=== PATIENT | male | born 1965 | race Caucasian/White ===

== ENCOUNTER 2017-09-27 11:35 | Emergency (ER) | payer OTHER ==
--- NOTE | 2017-09-27 12:10 | RAD ---
INDICATION: Chest pain COMPARISON: None TECHNIQUE: An AP portable view obtained at 1202 hours is submitted. FINDINGS: Bones/Soft Tissues: There are no acute bony findings. Cardiomediastinal: The cardiomediastinal silhouette is normal. Lungs: There are no infiltrates. Pleura: There are no pleural effusions. Other: None IMPRESSION: NO ACTIVE DISEASE
[2017-09-27 12:38] LABS: ABS Basophils 0 10^3/ul (0-0.2); ABS Eosinophils 0 10^3/ul (0-0.6); ABS Lymphocytes 1.4 10^3/ul (1.0-4.8); ABS Monocytes 0.5 10^3/ul (0-0.8); ABS Neutrophils 3.2 10^3/ul (1.5-7.7); ABS Nucleated RBC 0 10^3/ul; Eosinophil % 0.7 % (0-6); Hematocrit 45 % (42-52); Hemoglobin 15.5 g/dl (14.0-18.0); Lymphocyte % 27.3 % (25-47); Mean Corpuscular HGB Conc 34 g/dl (31-36); Mean Corpuscular Hemoglobin 31 pg (27-31); Mean Corpuscular Volume 92 fL (80-94); Mean Platelet Volume 7 um3 (7.4-10.4); Nucleated Red Blood Cells % 0.1; Platelet Count 167 10^3/ul (150-450); Red Blood Count 4.94 10^6/ul (4.0-5.4); Red Cell Distribution Width 14 % (10.5-15); White Blood Count 5.2 10^3/ul (3.5-10.8)
[2017-09-27 12:52] LABS: EGFR Non-African American 83.6 (>60)
[2017-09-27 16:46] VITALS: BP 141/91
--- NOTE | 2017-09-27 21:19 | CONS ---
CC: Dr. Evans; Dr. Luis Farias* CONSULTATION REPORT: DATE OF CONSULT: 09/25/17 PRIMARY CARE PROVIDER: Dr. Evans. MY ATTENDING WHILE IN THE HOSPITAL: Dr. Luis Farias. CHIEF COMPLAINT: Chest pain. HISTORY OF PRESENT ILLNESS: Mr. French is a 52-year-old male with past medical history significant for hypertension, GERD and hiatal hernia who presents to the emergency department after 2 episodes of chest pain radiating to his neck in the past 3 weeks. The patient states the first episode he was in the grocery store. He has not had any recent changes in his diet or anything out of the ordinary and he developed sudden onset burning pain underneath his epigastric region, which radiated up to his neck. The patient states that he went back to his car, burped several times, and it resolved. The patient had no other symptoms such as nausea, vomiting, diaphoresis or shortness of breath. The patient states it did not radiate anywhere besides his neck. 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 States that with no provocation, he had a similar more intense chest pain rated as a 7/10, burning underneath his epigastric region, radiating up into his neck. The patient states that it started about 1030. The patient was at work. 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 The patient denies no burping with relief. The patient denies any recent illnesses. The patient denied any associated symptoms such as nausea, vomiting, sweating or shortness of breath with this episode. The patient states that he did have a similar episode many years ago where he was sent to the hospital, had an endoscopy and it was revealed that he had a hiatal hernia with esophagitis and was started on omeprazole therapy at that time. The patient has no other episodes similar to this. The patient takes lisinopril, omeprazole, and an unknown anti- inflammatory medication for his shoulder. The patient stated that he is not inclined to stay overnight in the hospital. The patient denies any other recent illnesses, exposure to flu. The patient states he had a stomach virus in early July, it lasted 3 days. The patient states he has some chronic loose stools without diarrhea or blood, but has been going on since he started his omeprazole. The patient states he has occasional wheezing when exposed to cold air and takes ibuprofen occasionally for aches and pain. PAST MEDICAL HISTORY: Hypertension, GERD, hiatal hernia. PAST SURGICAL HISTORY: EGD. MEDICATIONS: 1. Omeprazole 20 mg p.o. daily. 2. Lisinopril 10 mg p.o. daily. 3. Nabumetone 500 mg p.o. b.i.d. as needed. ALLERGIES: No known drug allergies. FAMILY HISTORY: The patient's father is and had prostate cancer and no other known past medical conditions. The patient's mother is alive and well and has no known past medical history. The patient has a sister with no past medical history except for "woman issues." SOCIAL HISTORY: The patient has never smoked. The patient drinks 3 to 4 beers a night and has done so for approximately 3 or 4 years. The patient denies any illicit drug use. The patient works in maintenance at [employer]. The patient is not , has 1 biological son and 1 adopted son, both of whom are healthy. REVIEW OF SYSTEMS: A 14-point review of systems was reviewed and is negative except as above. PHYSICAL EXAM: General: The patient is a 52-year-old male, who appears stated age and is sitting comfortably in the bed, in no acute distress. Vital Signs: En route to the emergency department, temperature 98.2, pulse rate 70, respiratory rate 16, oxygen saturation 97% on room air, blood pressure 133/94. HEENT: Head normocephalic, atraumatic. Sclerae anicteric. No conjunctival injection. Nasal mucosa moist. Oral mucosa moist. No pharyngeal erythema, erosions, postnasal drip, discharge or exudate. Neck: Supple, nontender, no lymphadenopathy. No carotid bruits auscultated. Cardiac: Regular rate and rhythm. No clicks, murmurs, gallops, or rubs. Pulses 2+ in bilateral dorsalis pedis, posterior tibialis and radial areas. Respiratory: Clear to auscultation bilaterally. No wheezes, rales, or rhonchi. Good air exchange bilaterally. Abdomen: Soft, nontender, nondistended. Bowel sounds present and normoactive in all 4 quadrants. No hepatosplenomegaly. No abdominal bruits auscultated. Genitourinary: No suprapubic or CVA tenderness. Skin: Clean, dry , and intact. No rash. Neuro: Cranial nerves II through XII intact. Alert and oriented x3. No focal deficits. Psychiatric: Pleasant and cooperative. DIAGNOSTIC STUDIES/LAB DATA: White blood cell count 5.2, hemoglobin 13.5, hematocrit 45, platelet count 167. Sodium 136, potassium 4.1, chloride 103, carbon dioxide 27, anion gap 6, BUN 14, creatinine 0.94, glucose 104, lactic acid 1.0, calcium 9.2, bilirubin 0.5, AST 17, ALT 29, alk phos 45, troponin I 0.00. Total protein 6.4, albumin 4.1, globulin 2.3, albumin/globulin ratio 1.8. Studies: Electrocardiogram shows normal sinus rhythm, left axis deviation, no ST segment changes, no blocks, hypertrophy, or enlargement, QTc of 418, rate 65 , no other abnormalities. Chest x-ray read as no active disease. ASSESSMENT AND PLAN: The patient is a 52-year-old male with a past medical history significant for hypertension, gastroesophageal reflux disease, and hiatal hernia who presents with 2 episodes of chest pain 3 weeks apart, one of which resolved with burping, the other one which resolved with nitroglycerin and aspirin. The patient is currently chest pain free, though had small episodes of similar chest pain, which resolved with burping. The patient refused admission to the hospital. The patient has a KRISTINE risk score of 0 indicating a 5% risk of , NV, or ischemia requiring urgent vascularization. 1. Chest pain. The patient has a KRISTINE risk score of 0 as above. The patient' s chest pain sounds to be gastrointestinal in nature due to previous episode of similar chest pain which was ruled out for cardiac causes and it turned to most likely be due to esophagitis. However, it was encouraged that the patient stay for repeat troponins and a stress test in the morning. The patient declined this stating that he understands the risk of leaving with risk being , heart attack, and having to return to the hospital. The patient is discharged to follow up with his primary care provider for risk stratification with lipid panel, hemoglobin A1c, and for further cardiac testing. Outpatient stress test is strongly recommended. The patient should return to the hospital for any chest pain, shortness of breath, or other alarming symptoms. 2. Hypertension. The patient is normotensive in the hospital and should be continued on lisinopril. 3. Gastroesophageal reflux disease with hiatal hernia. The patient should follow up with primary care provider for this. The patient was encouraged to purchase [id number] Tums and if he had recurrent chest pain of this nature to take Tums to assess whether there was any improvement in his symptoms with this. The patient should also return to the hospital if similar chest pain occurs. 4. Diet. The patient should have a heart healthy diet and avoid excessive caffeine. The patient should decrease his alcohol use. TIME SPENT: Approximately 60 minutes were spent on this consultation, 30 of which were spent [id number] with the patient obtaining history and physical and discussing treatment plan as well as risk and benefits for refusing admission to the hospital. This plan has been discussed with my attending, Dr. Luis Farias, he is in agreement. ELENA CLARK [id number]/[facility] #: [id number] [place]
--- NOTE | 2017-09-28 08:02 | ED ---
Daya Woodard Julia, scribed for Uli Wen MD on 09/27/17 at 1231 . 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 Patient denies dizziness, diaphoresis, SOB, LE edema, nausea, and vomiting. Patient was given four baby ASA before EMS arrival. Patient was given Nitroglycerin by EMS. Pain is currently resolved. Patient reports a similar but less severe pain 3 weeks ago while grocery shopping that resolved after a few minutes while sitting and belching. - History of Current Complaint Chief Complaint: EDChestPainROMI Time Seen by Provider: 09/27/17 12:00 Hx Obtained From: Patient Onset/Duration: Started Hours Ago, Resolved Time of Onset: 10:30 Pain Intensity: 0 Pain Scale Used: 0-10 Numeric Chest Pain Location: Mid Sternal Chest Pain Radiates: Yes Chest Pain Radiates To:: Jaw Character: Dull/Aching Alleviating Factor(s): EMS Tx - Nitro and four baby ASA Associated Signs and Symptoms: Positive: Chest Pain, Other: - jaw pain. Negative: Dizziness, Shortness of Breath, Diaphoresis, Nausea, Vomiting - Allergy/Home Medications Allergies/Adverse Reactions: Allergies Allergy/AdvReac Type Severity Reaction Status Date / Time No Known Allergies Allergy Verified 05/22/12 13:29 Home Medications: Home Medications Lisinopril/HCTZ 20/12.5(NF) [Zestoretic 20/12.5(NF)] 1 tab PO DAILY 09/27/17 [ History Confirmed 09/27/17] Nabumetone [Nabumetone] 500 mg PO BID 09/27/17 [History Confirmed 09/27/17] Omeprazole CAP* [Prilosec CAP* 20 MG] 20 mg PO DAILY 09/27/17 [History Confirmed 09/27/17] PMH/Surg Hx/FS Hx/Imm Hx Cardiovascular History: Reports: Hx Hypertension GI History: Reports: Hx Gastroesophageal Reflux Disease - Surgical History Surgery Procedure, Year, and Place: tonsillectomy, addenoidectomy; benign tumor left chest removed Infectious Disease History: No Infectious Disease History: Denies: Traveled Outside the [place] in Last 30 Days - Family History Known Family History: Positive: Other - prostate CA - father Negative: Cardiac Disease - Social History Occupation: Employed Full-time Substance Use Type: Reports: None Smoking Status (MU): Never Smoked Tobacco Review of Systems Negative: Skin Diaphoresis Positive: Dental Pain - jaw pain Positive: Chest Pain Negative: Shortness Of Breath Negative: Vomiting, Nausea Negative: Edema Neurological: Negative - dizziness All Other Systems Reviewed And Are Negative: Yes Physical Exam - Summary Physical Exam Summary: Appearance: The patient is well-nourished in no acute distress and in no acute pain. Skin: The skin is warm and dry and skin color reflects adequate perfusion. HEENT: The head is normocephalic and atraumatic. The pupils are equal and reactive. The conjunctivae are clear and without drainage. Nares are patent and without drainage. Mouth reveals moist mucous membranes and the throat is without erythema and exudate. The external ears are intact. The ear canals are patent and without drainage. The tympanic membranes are intact. Neck: the neck is supple with full range of motion and non-tender. There are no carotid bruits. There is no neck vein distension. Respiratory: Chest is non-tender. Lungs are clear to auscultation and breath sounds are symmetrical and equal. Cardiovascular: Heart is regular rate and rhythm. There is no murmur or rub auscultated. There is no peripheral edema and pulses are symmetrical and equal. Abdomen: The abdomen is soft and non-tender. There are normal bowel sounds heard in all four quadrants and there is no organomegaly palpated. Musculoskeletal: There is no back tenderness noted. Extremities are non-tender with full range of motion. There is good capillary refill. There is no peripheral edema or calf tenderness elicited. Neurological: Patient is alert and oriented to person, place and time. The patient has symmetrical motor strength in all four extremities. Cranial nerves are grossly intact. Deep tendon reflexes are symmetrical and equal in all four extremities. Psychiatric: The patient has an appropriate affect and does not exhibit any anxiety or depression. Triage Information Reviewed: Yes Vital Signs On Initial Exam: Initial Vitals Temp Pulse Resp BP Pulse Ox 98.2 F 68 16 133/94 97 09/27/17 11:51 09/27/17 11:51 09/27/17 11:51 09/27/17 11:51 09/27/17 11:51 Vital Signs Reviewed: Yes Diagnostics - Vital Signs Vital Signs Temp Pulse Resp BP Pulse Ox 09/27/17 11:51 98.2 F 68 16 133/94 97 - Laboratory Lab Results: Lab Results 09/27/17 09/27/17 09/27/17 Range/Units 12:25 12:25 12:25 WBC 5.2 (3.5-10.8) 10^3/ul RBC 4.94 (4.0-5.4) 10^6/ul Hgb 15.5 (14.0-18.0) g/dl Hct 45 (42-52) % MCV 92 (80-94) fL MCH 31 (27-31) pg MCHC 34 (31-36) g/dl RDW 14 (10.5-15) % Plt Count 167 (150-450) 10^3/ul MPV 7 L (7.4-10.4) um3 Neut % (Auto) 61.4 (38-83) % Lymph % (Auto) 27.3 (25-47) % [place] % (Auto) 10.0 H (0-7) % Eos % (Auto) 0.7 (0-6) % Baso % (Auto) 0.6 (0-2) % Absolute Neuts (auto) 3.2 (1.5-7.7) 10^3/ul Absolute Lymphs (auto) 1.4 (1.0-4.8) 10^3/ul Absolute Monos (auto) 0.5 (0-0.8) 10^3/ul Absolute Eos (auto) 0 (0-0.6) 10^3/ul Absolute Basos (auto) 0 (0-0.2) 10^3/ul Absolute Nucleated RBC 0 10^3/ul Nucleated RBC % 0.1 Sodium 136 (133-145) mmol/L Potassium 4.1 (3.5-5.0) mmol/L Chloride 103 (101-111) mmol/L Carbon Dioxide 27 (22-32) mmol/L Anion Gap 6 (2-11) mmol/L BUN 14 (6-24) mg/dL Creatinine 0.94 (0.67-1.17) mg/dL Est GFR ( Amer) 107.6 (>60) Est GFR (Non-Af Amer) 83.6 (>60) BUN/Creatinine Ratio 14.9 (8-20) Glucose 104 H (70-100) mg/dL Lactic Acid 1.0 (0.5-2.0) mmol/L Calcium 9.2 (8.6-10.3) mg/dL Total Bilirubin 0.50 (0.2-1.0) mg/dL AST 17 (13-39) U/L ALT 29 (7-52) U/L Alkaline Phosphatase 45 (34-104) U/L Troponin I 0.00 (<0.04) ng/mL Total Protein 6.4 (6.4-8.9) g/dL Albumin 4.1 (3.2-5.2) g/dL Globulin 2.3 (2-4) g/dL Albumin/Globulin Ratio 1.8 (1-3) /09/15 Range/Units 15:12 WBC (3.5-10.8) 10^3/ul RBC (4.0-5.4) 10^6/ul Hgb (14.0-18.0) g/dl Hct (42-52) % MCV (80-94) fL MCH (27-31) pg MCHC (31-36) g/dl RDW (10.5-15) % Plt Count (150-450) 10^3/ul MPV (7.4-10.4) um3 Neut % (Auto) (38-83) % Lymph % (Auto) (25-47) % [place] % (Auto) (0-7) % Eos % (Auto) (0-6) % Baso % (Auto) (0-2) % Absolute Neuts (auto) (1.5-7.7) 10^3/ul Absolute Lymphs (auto) (1.0-4.8) 10^3/ul Absolute Monos (auto) (0-0.8) 10^3/ul Absolute Eos (auto) (0-0.6) 10^3/ul Absolute Basos (auto) (0-0.2) 10^3/ul Absolute Nucleated RBC 10^3/ul Nucleated RBC % Sodium (133-145) mmol/L Potassium (3.5-5.0) mmol/L Chloride (101-111) mmol/L Carbon Dioxide (22-32) mmol/L Anion Gap (2-11) mmol/L BUN (6-24) mg/dL Creatinine (0.67-1.17) mg/dL Est GFR ( Amer) (>60) Est GFR (Non-Af Amer) (>60) BUN/Creatinine Ratio (8-20) Glucose (70-100) mg/dL Lactic Acid (0.5-2.0) mmol/L Calcium (8.6-10.3) mg/dL Total Bilirubin (0.2-1.0) mg/dL AST (13-39) U/L ALT (7-52) U/L Alkaline Phosphatase (34-104) U/L Troponin I 0.00 (<0.04) ng/mL Total Protein (6.4-8.9) g/dL Albumin (3.2-5.2) g/dL Globulin (2-4) g/dL Albumin/Globulin Ratio (1-3) Result Diagrams: 09/27/17 12:25 09/27/17 12:25 Lab Statement: Any lab studies that have been ordered have been reviewed, and results considered in the medical decision making process. - Radiology CXR Radiology Interpretation Completed By: Radiologist - NO ACTIVE DISEASE. ED Physician has reviewed this report. - EKG 1207 Cardiac Rate: NL - at 60 BPM EKG Rhythm: Sinus Rhythm EKG Interpretation: short OH interval, diffuse nonspecific ST depression Chest Pain Course/Dx - Course Course Of Treatment: Mr. French presented with a worrisome story for unstable angina with multiple risk factors. His initial ECG and labs were negative and I asked the hospitalists to evaluate him for admission. He was adamant about not staying in the hospital although he understood the risks. He was willing to stay for a repeat troponin and that was 0 so he was D/C'd instable condition. I recommended close F/U. - Diagnoses Provider Diagnoses: Chest pain - Provider Notifications Discussed Care Of Patient With: Sudeep Farias MD - hospitalist Time Discussed With Above Provider: 13:40 Instructed by Provider To: MD Will See In ED Discharge - Discharge Plan Condition: Stable Disposition: HOME Patient Education Materials: Chest Pain (ED) Referrals: Erick Evans MD [Primary Care Provider] - 3 Days (Follow up with your doctor on 09/30/17.) The documentation as recorded by the Daya sheppard Julia accurately reflects the service I personally performed and the decisions made by me, Uli Wen MD.
== END 2017-09-27 16:46 | disposition home or self-care (01) ==
LOC: ED 11:35
DX: R07.9 Chest pain, unspecified (principal); I10 Essential (primary) hypertension; K21.9 Gastro-esophageal reflux disease without esophagitis; K44.9 Diaphragmatic hernia without obstruction or gangrene
CPT/HCPCS: 36415; 71045; 80053; 83605; 84484; 85025; 93005

== ENCOUNTER 2018-07-31 11:00 | Emergency (ER) | payer OTHER ==
[2018-07-31 11:06] VITALS: BP 133/81
--- NOTE | 2018-07-31 11:14 | UC ---
Lower Extremity/Ankle HPI - HPI Summary HPI Summary: 53 yo male presents with RIGHT foot pain for the last 2-3 days. 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 He has not taken anything OTC for his symptoms. Does feel better after a few days of rest off of work. Denies injury, numbness, or tingling. - History of Current Complaint Chief Complaint: UCLowerExtremity Stated Complaint: R FOOT COMPLAINT Time Seen by Provider: 07/31/18 11:12 Hx Obtained From: Patient Onset/Duration: Gradual Onset Severity Initially: Moderate Severity Currently: Moderate Pain Intensity: 8 Pain Scale Used: 0-10 Numeric Aggravating Factor(s): Standing, Ambulation Alleviating Factor(s): Rest Able to Bear Weight: Yes - Allergies/Home Medications Allergies/Adverse Reactions: Allergies Allergy/AdvReac Type Severity Reaction Status Date / Time No Known Allergies Allergy Verified 07/31/18 11:07 PMH/Surg Hx/FS Hx/Imm Hx Cardiovascular History: Hypertension GI/ History: Gastroesophageal Reflux - Surgical History Surgical History: Yes Surgery Procedure, Year, and Place: tonsillectomy, addenoidectomy; benign tumor left chest removed - Family History Known Family History: Positive: Other - prostate CA - father Negative: Cardiac Disease - Social History Occupation: Employed Full-time Lives: With Family Alcohol Use: Daily Alcohol Amount: Daily drinker 5-6 beers a day Substance Use Type: None Smoking Status (MU): Never Smoked Tobacco - Immunization History Most Recent Tetanus Shot: "long time ago" Review of Systems All Other Systems Reviewed And Are Negative: Yes Constitutional: Positive: Negative Skin: Positive: Negative Cardiovascular: Positive: Negative Neurovascular: Positive: Negative Musculoskeletal: Positive: Other: - Right foot pain Neurological: Positive: Negative Psychological: Positive: Negative Physical Exam - Summary Physical Exam Summary: GENERAL: NAD. WDWN. No pain distress. SKIN: No rashes, sores, lesions, or open wounds. CHEST: No accessory muscle use. Breathing comfortably and in no distress. CV: Pulses intact PT and DP. Cap refill <2seconds MSK: RIGHT FOOT: Mild TTP about arch and midfoot. FROM without pain. Strength 5/ 5. No edema or obvious bony deformities. NEURO: Alert. Sensations intact and symmetric B/L LEs PSYCH: Age appropriate behavior. Triage Information Reviewed: Yes Vital Signs: Initial Vital Signs Temp 98 F 07/31/18 11:04 Pulse 71 07/31/18 11:04 Resp 15 07/31/18 11:04 BP 133/81 07/31/18 11:04 Pulse Ox 100 07/31/18 11:04 Vital Signs Reviewed: Yes Lower Extremity Course/Dx - Course Course Of Treatment: XR: IMPRESSION: Degenerative changes of the first metatarsophalangeal joint without definite. fracture. Suspect over-use injury. He declined CAM boot today. Advised to try OTC shoe inserts and f/u with Orthopedics. - Differential Dx/Diagnosis Provider Diagnosis: Right foot pain Discharge - Sign-Out/Discharge Documenting (check all that apply): Patient Departure All imaging exams completed and their final reports reviewed: Yes - Discharge Plan Condition: Stable Disposition: HOME Patient Education Materials: Metatarsalgia (DC) Referrals: Erick Evans MD [Primary Care Provider] - If Needed Additional Instructions: If you develop a fever, shortness of breath, chest pain, new or worsening symptoms - please call your PCP or go to the ED. Your blood pressure was high at todays visit. Please see your primary provider within 4 weeks for recheck and re-evaluation. The X-Ray of your foot today was normal. I suspect your pain is due to an over-use of the foot and this may be improved with rest, ice, and proper footwear or insoles. Please try and [id number] gel shoe insert and schedule a follow up appointment with your primary doctor if your symptoms continues. - Billing Disposition and Condition Condition: STABLE Disposition: Home
== END 2018-07-31 13:04 | disposition home or self-care (01) ==
LOC: UCEAST 11:00
DX: M79.671 Pain in right foot (principal); M19.071 Primary osteoarthritis, right ankle and foot; I10 Essential (primary) hypertension
CPT/HCPCS: 99211; G0463